=== PATIENT | male | born 1935 | race Caucasian/White ===

== ENCOUNTER 2017-08-05 20:01 | Inpatient (IN) | payer MEDICARE, MEDICAID ==
[2017-08-05 21:14] LABS: % BASOPHILS 0.1 % (0.0-2.0); % EOSINOPHILS 0.1 % (0.0-5.0); MONOCYTE ABSOLUTE 0.4 Th/cmm (0.3-1.0); RED BLOOD COUNT 4.97 Mil/cmm (3.80-5.80)
[2017-08-05] MEDS ORDERED: Sodium Chloride 0.9% 1,000 ML IV ONE (21:16)
[2017-08-05 21:17] LABS: % LYMPHOCYTES 9.9 % (20.0-50.0); % MONOCYTES 3.1 % (2.0-10.0); % NEUTROPHILS 86.8 % (40.0-80.0); HEMATOCRIT 45.7 % (41.0-60); HEMOGLOBIN 15.2 gm/dL (12-16); LYMPHOCYTE ABSOLUTE 1.2 Th/cmm (1.5-3.0); MEAN CELL VOLUME 91.8 fl (80-99); MEAN CORPUSCULAR HEMOGLOBIN 30.5 pg (27.0-31.0); MEAN CORPUSCULAR HGB CONC 33.2 pg (28.0-36.0); MEAN PLATELET VOLUME 8.4 fl; PLATELET COUNT 358 Th/cmm (150-400); RED CELL DISTRIBUTION WIDTH 13.6 % (11.5-20.0)
[2017-08-05 21:21] LABS: WHITE BLOOD COUNT 12.6 Th/cmm (4.8-10.8)
[2017-08-05 21:27] LABS: ALB/GLOB RATIO 1.1 (1.0-1.8); ALBUMIN 3.9 gm/dL (4.2-5.5); ALKALINE PHOSPHATASE 54 U/L (34-104); ANION GAP 11.5 (7.0-16.0); BILIRUBIN,TOTAL 0.6 mg/dL (0.3-1.0); BUN - UREA NITROGEN 28 mg/dL (7-25); CALCIUM SERUM 9.8 mg/dL (8.6-10.3); CARBON DIOXIDE 27.3 mEq/L (21.0-31.0); CHLORIDE 101 mEq/L (98-107); CREATININE - SERUM 0.8 mg/dL (0.7-1.3); GLUCOSE 142 mg/dL (70-105); POTASSIUM SERUM 3.8 mEq/L (3.5-5.1); SGOT 19 U/L (13-39); SGPT/ALT 11 U/L (7-52); SODIUM SERUM 136 mEq/L (136-145); TOTAL PROTEIN,SERUM 7.6 gm/dL (6.0-8.3)
[2017-08-05 21:28] LABS: AMYLASE SERUM 32 U/L (29-103); LIPASE 6 U/L (11-82)
[2017-08-05] MEDS ORDERED: cefTRIAXone 1 GM in Sodium Chloride 0.9% 50 ML IV ONE (21:40)
--- NOTE | 2017-08-05 21:50 | ED Physician Chart ---
ED Chief Complaint/HPI - Patient Information Date Seen:: 08/05/17 Allergies:: Allergies Allergy/AdvReac Type Severity Reaction Status Date / Time tetracycline Allergy Verified 08/05/17 21:04 Vitals:: Vital Signs - 8 hr 08/05/17 20:05 Temp 98.1 F HR 88 RR 19 BP 127/69 O2 Sat % 96 Family Medical History - Family Member Father History Unknown: Yes Ethnicity: Non- ED Labs/Radiology/EKG Results - Lab Results Results: Laboratory Tests 08/05/17 08/05/17 08/05/17 21:06 21:06 21:06 WBC 12.6 H RBC 4.97 Hgb 15.2 Hct 45.7 MCV 91.8 MCH 30.5 MCHC Differential 33.2 RDW 13.6 Plt Count 358 MPV 8.4 Neutrophils % 86.8 H Lymphocytes % 9.9 L Monocytes % 3.1 Eosinophils % 0.1 Basophils % 0.1 Sodium 136 Potassium 3.8 Chloride 101 Carbon Dioxide 27.3 Anion Gap 11.5 BUN 28 H Creatinine 0.8 Est GFR ( Amer) TNP Est GFR (Non-Af Amer) TNP BUN/Creatinine Ratio 35.0 Glucose 142 H Whole Bld Lactic Acid Calcium 9.8 Total Bilirubin 0.6 AST 19 ALT 11 Alkaline Phosphatase 54 Total Protein 7.6 Albumin 3.9 L Globulin 3.7 Albumin/Globulin Ratio 1.1 Amylase 32 Lipase 6 L 08/05/17 21:06 WBC RBC Hgb Hct MCV MCH MCHC Differential RDW Plt Count MPV Neutrophils % Lymphocytes % Monocytes % Eosinophils % Basophils % Sodium Potassium Chloride Carbon Dioxide Anion Gap BUN Creatinine Est GFR ( Amer) Est GFR (Non-Af Amer) BUN/Creatinine Ratio Glucose Whole Bld Lactic Acid 1.17 Calcium Total Bilirubin AST ALT Alkaline Phosphatase Total Protein Albumin Globulin Albumin/Globulin Ratio Amylase Lipase ED Septic Shock - <6hrs of presentation: Vital Signs: Vital Signs - 8 hr 08/05/17 20:05 Temp 98.1 F HR 88 RR 19 BP 127/69 O2 Sat % 96
[2017-08-06 01:25] VITALS: BP 113/67
[2017-08-06] MEDS ORDERED: Mag Sulfate 2gm/50mL Premix 2 GM/50 ML BAG IV PRN (06:50)
[2017-08-06] MEDS ORDERED: Potassium Chloride 20 mEq ER Tab PO PRN (06:50)
[2017-08-06] MEDS ORDERED: Morphine Sulfate 2 mg/mL 1mL Syr IVP PRN (06:50)
--- NOTE | 2017-08-06 07:32 | History & Physical ---
ADMIT DATE: 08/06/2017 CHIEF COMPLAINT: Worsening confusion, labile mood, decreased appetite, and overall decline. HISTORY OF PRESENT ILLNESS/CAUSE OF ADMISSION: The patient is an 82-year-old male who is a patient of mine at long term facility. He had been experiencing worsening confusion, lethargy, and overall decline. He has also had decreased appetite and some nausea as well. He was sent to the hospital where he was found to have a leukocytosis. PAST MEDICAL HISTORY: Significant for glaucoma, muscle spasms, BPH, and Alzheimer dementia. PAST SURGICAL HISTORY: No recent major surgeries. FAMILY HISTORY: Noncontributory. ALLERGIES: He is allergic to tetracycline. MEDICATIONS: All home medications reviewed and reconciled. REVIEW OF SYSTEMS: GENERAL: Positive recent fatigue, worsening confusion, and overall decline and decreased appetite. HEENT: No recent head trauma, change in vision, taste, hearing, or smell. Oral: No recent pain or discharge. NECK: No recent tracheal deviation. ABDOMEN: No recent pain or distension. SKIN: No recent rashes. PSYCHIATRIC: He has been experiencing worsening confusion and labile mood and erratic behavior. EXTREMITIES: No recent edema. MUSCULOSKELETAL: Positive history of muscle spasms. EYES: He has history of glaucoma. GENITOURINARY: He has history of BPH. RESPIRATORY: No history of COPD or asthma. PHYSICAL EXAMINATION: VITAL SIGNS: Temperature 98 degrees, heart rate is 75, respirations 18, blood pressure 112/63. Currently, no pain. GENERAL: No acute distress, awake, but confused. He is not alert. HEENT: No acute issues. NECK: Trachea is midline. CARDIOVASCULAR: Regular rate and rhythm. ABDOMEN: Nontender, nondistended. SKIN: No rashes. PSYCHIATRIC: He has labile mood. EXTREMITIES: 1+ edema in lower extremities. RESPIRATORY: Decreased breath sounds bilaterally. CARDIOVASCULAR: Regular rate and rhythm. GENITOURINARY: No hematuria is noted. LABORATORY DATA: Some of the labs are pending. White count is 12.6, hemoglobin is 15.2, and platelet count is 358,000. Sodium is 136, potassium 3.8, chloride 101, bicarbonate 27.3, BUN 28, creatinine 0.8, glucose 142. Lipase is 6. TSH is 0.28. ASSESSMENT AND PLAN: 1. Metabolic encephalopathy. 2. Dementia, Alzheimer's type with exacerbation. 3. Muscle spasms. 4. Glaucoma. 5. Leukocytosis. 6. Benign prostatic hypertrophy. 7. Mild malnutrition. 8. Prerenal azotemia. PLAN: The patient is on IV hydration. Follow up on UA, chest x-ray, and blood cultures. long term medications have been continued. Continue to monitor closely. Follow up on chest x-ray and the rest of the electrolytes. Prognosis is guarded. The patient can benefit from a psych evaluation. [facility]# [id number]
--- NOTE | 2017-08-06 08:01 | Diagnostic Imaging Report ---
Exam: Portable summation of chest. HISTORY: Shortness of breath. Findings: Portable upright examination of the chest at 2112 hours reviewed no prior studies available comparison. The study demonstrates COPD changes. There is evidence for scarring versus a right apical peribronchial thickening which might represent early infiltrate. The costophrenic angles are clear. Bony thorax intact. The aortic arch is calcified. IMPRESSION: 1. COPD changes. 2. Peribronchial thickening right apex might represent fibrosis versus early infiltrate follow-up examination is recommended.
[2017-08-06] MEDS ORDERED: Non-Formulary Item 1 EA (Amino Acids/Protein Hydrolys [Pro-Stat Awc Liquid] 30 ML) PO SCH (09:00)
--- NOTE | 2017-08-06 11:00 | Diagnostic Imaging Report ---
CT abdomen and pelvis without intravenous contrast Indication: Pain, vomiting Comparison: None, Technique: Axial images were obtained from the lung bases to the bilateral proximal femurs without IV contrast. Coronal reconstructions were made. total DLP: 534, CTDI9.9 FINDINGS: Emphysematous changes of the lung bases are seen. Hypoventilatory and atelectatic lung changes are seen with focal left basal infiltrates. Assessment of the solid organs is limited due to lack of IV contrast. Partially visualized pacemaker wires are noted. A 1.5 cm cyst is seen within the left dome of the liver. An additional 1 cm cyst is seen within the right dome of the liver. Gallstones are noted. No focal hepatic lesions. Limited assessment of pancreas demonstrate no obvious focal lesions. No focal adrenal lesions. Small bilateral renal calculi are seen the largest on left side measuring 4 mm. No hydronephrosis. Mild mild bilateral perinephric inflammatory changes are noted. The stomach is markedly distended. Multiple gas and fluid loops of small and large bowel are noted. No evidence of free air or free fluid. Heavy atherosclerotic vascular disease is noted. Degenerative changes spine are noted. Postsurgical changes of left femur are noted. IMPRESSION: Distended stomach and multiple gaseous and fluid distended loops of small and large bowel. Findings are nonspecific and may be due to inflammatory process/enteritis. A low-grade obstructive process is considered less likely. Please correlate with clinical findings Nonobstructive bilateral renal stones. Nonspecific bilateral perinephric inflammatory changes Gallstones. Appendix was not visualized. Focal left basal pulmonary infiltrates. Evidence of left femoral fracture fixation. Heavy atherosclerotic vascular disease.
[2017-08-06] MEDS: D5-0.9%NS 1,000 ML IV SCH (15:57)
[2017-08-06 18:01] LABS: URINE MICROSCOPIC INDICATED? YES; URINE SOURCE RANDOM
[2017-08-06 18:05] LABS: URINE BILIRUBIN NEGATIVE (NEGATIVE); URINE BLOOD TRACE (NEGATIVE); URINE GLUCOSE (UA) NEGATIVE (NEGATIVE); URINE KETONE NEGATIVE (NEGATIVE); URINE LEUKOCYTE ESTERASE SMALL (NEGATIVE); URINE NITRATE POSITIVE (NEGATIVE); URINE PROTEIN TRACE mg/dL (NEGATIVE); URINE UROBILINOGEN 0.2 E.U./dL (0.2 - 1.0)
[2017-08-06 18:48] LABS: URINE CLARITY CLEAR (CLEAR); URINE COLOR YELLOW
[2017-08-06 18:52] LABS: URINE BACTERIA FEW /hpf (NONE SEEN); URINE EPITHELIAL CELLS NONE SEEN /lpf (FEW)
[2017-08-07 05:37] LABS: MANUAL DIFF REQUIRED? YES; MEAN CELL VOLUME 91.4 fl (80-99); MEAN CORPUSCULAR HEMOGLOBIN 30.6 pg (27.0-31.0); MEAN CORPUSCULAR HGB CONC 33.5 pg (28.0-36.0); MEAN PLATELET VOLUME 8.6 fl; RED BLOOD COUNT 3.92 Mil/cmm (3.80-5.80); RED CELL DISTRIBUTION WIDTH 13.9 % (11.5-20.0)
[2017-08-07 05:44] LABS: HEMATOCRIT 35.9 % (41.0-60); PLATELET COUNT 268 Th/cmm (150-400); WHITE BLOOD COUNT 12.9 Th/cmm (4.8-10.8)
[2017-08-07 06:00] LABS: ANION GAP 6.5 (7.0-16.0); BUN - UREA NITROGEN 18 mg/dL (7-25); CALCIUM SERUM 8.3 mg/dL (8.6-10.3); CHLORIDE 104 mEq/L (98-107); CREATININE - SERUM 0.6 mg/dL (0.7-1.3); GLUCOSE 105 mg/dL (70-105); POTASSIUM SERUM 3.5 mEq/L (3.5-5.1); SODIUM SERUM 135 mEq/L (136-145)
[2017-08-07 06:36] LABS: BAND NEUTROPHILE 4 % (0-10); EOSINOPHIL 1 % (0-5); LYMPHOCYTE 6 % (20-50); MONOCYTE 4 % (2-10); NEUTROPHILS 85 % (40-80); PLATELET ESTIMATE ADEQUATE (NORMAL); TOTAL CELLS COUNTED 100
--- NOTE | 2017-08-07 11:00 | General Progress Note ---
Subjective - Review of Systems Service Date: 08/07/17 Subjective: Pt seen and eval. Ct abd and pelvis done as pt was experiencing intractable nausea and vomiting (part of reason why he was sent to the hospital). He's found to have UTI as well. Now on [place]. GI has been consulted. No fevers or chills. No pain. No falls. Objective - Results Result Diagrams: 08/07/17 05:17 08/07/17 05:17 Recent Labs: Laboratory Last Values WBC 12.9 Th/cmm (4.8-10.8) H 08/07/17 05:17 RBC 3.92 Mil/cmm (3.80-5.80) 08/07/17 05:17 Hgb 12.0 gm/dL (12-16) D 08/07/17 05:17 Hct 35.9 % (41.0-60) L D 08/07/17 05:17 MCV 91.4 fl (80-99) 08/07/17 05:17 MCH 30.6 pg (27.0-31.0) 08/07/17 05:17 MCHC Differential 33.5 pg (28.0-36.0) 08/07/17 05:17 RDW 13.9 % (11.5-20.0) 08/07/17 05:17 Plt Count 268 Th/cmm (150-400) D 08/07/17 05:17 MPV 8.6 fl 08/07/17 05:17 Neutrophils % 86.8 % (40.0-80.0) H 08/05/17 21:06 Band Neutrophils % 4 % (0-10) 08/07/17 05:17 Lymphocytes % 9.9 % (20.0-50.0) L 08/05/17 21:06 Monocytes % 3.1 % (2.0-10.0) 08/05/17 21:06 Eosinophils % 0.1 % (0.0-5.0) 08/05/17 21:06 Basophils % 0.1 % (0.0-2.0) 08/05/17 21:06 Neutrophils (Manual) 85 % (40-80) H 08/07/17 05:17 Lymphocytes 6 % (20-50) L 08/07/17 05:17 Monocytes 4 % (2-10) 08/07/17 05:17 Eosinophils 1 % (0-5) 08/07/17 05:17 Platelet Estimate ADEQUATE (NORMAL) 08/07/17 05:17 Sodium 135 mEq/L (136-145) L 08/07/17 05:17 Potassium 3.5 mEq/L (3.5-5.1) 08/07/17 05:17 Chloride 104 mEq/L (98-107) 08/07/17 05:17 Carbon Dioxide 28.0 mEq/L (21.0-31.0) 08/07/17 05:17 Anion Gap 6.5 (7.0-16.0) L 08/07/17 05:17 BUN 18 mg/dL (7-25) 08/07/17 05:17 Creatinine 0.6 mg/dL (0.7-1.3) L 08/07/17 05:17 Est GFR ( Amer) TNP 08/07/17 05:17 Est GFR (Non-Af Amer) TNP 08/07/17 05:17 BUN/Creatinine Ratio 30.0 08/07/17 05:17 Glucose 105 mg/dL (70-105) 08/07/17 05:17 Hemoglobin A1c % 7.0 % (4.0-6.0) H 08/06/17 07:30 Whole Bld Lactic Acid 1.17 mmol/L (0.60-1.99) 08/05/17 21:06 Calcium 8.3 mg/dL (8.6-10.3) L 08/07/17 05:17 Magnesium 2.2 mg/dL (1.9-2.7) 08/06/17 07:30 Total Bilirubin 0.6 mg/dL (0.3-1.0) 08/05/17 21:06 AST 19 U/L (13-39) 08/05/17 21:06 ALT 11 U/L (7-52) 08/05/17 21:06 Alkaline Phosphatase 54 U/L (34-104) 08/05/17 21:06 Total Protein 7.6 gm/dL (6.0-8.3) 08/05/17 21:06 Albumin 3.9 gm/dL (4.2-5.5) L 08/05/17 21:06 Globulin 3.7 gm/dL 08/05/17 21:06 Albumin/Globulin Ratio 1.1 (1.0-1.8) 08/05/17 21:06 Amylase 32 U/L (29-103) 08/05/17 21:06 Lipase 6 U/L (11-82) L 08/05/17 21:06 TSH 0.28 uIU/ml (0.34-5.60) L 08/05/17 21:06 Urine Source RANDOM 08/06/17 17:45 Urine Color YELLOW 08/06/17 17:45 Urine Clarity CLEAR (CLEAR) 08/06/17 17:45 Urine pH 6.0 (4.6 - 8.0) 08/06/17 17:45 Ur Specific [place] >= 1.030 (1.005-1.030) 08/06/17 17:45 Urine Protein TRACE mg/dL (NEGATIVE) 08/06/17 17:45 Urine Glucose (UA) NEGATIVE mg/dL (NEGATIVE) 08/06/17 17:45 Urine Ketones NEGATIVE mg/dL (NEGATIVE) 08/06/17 17:45 Urine Blood TRACE (NEGATIVE) 08/06/17 17:45 Urine Nitrate POSITIVE (NEGATIVE) H 08/06/17 17:45 Urine Bilirubin NEGATIVE (NEGATIVE) 08/06/17 17:45 Urine Urobilinogen 0.2 E.U./dL (0.2 - 1.0) 08/06/17 17:45 Ur Leukocyte Esterase SMALL (NEGATIVE) H 08/06/17 17:45 Urine RBC 5-10 /hpf (0-5) H 08/06/17 17:45 Urine WBC 6-10 /hpf (0-5) H 08/06/17 17:45 Ur Epithelial Cells NONE SEEN /lpf (FEW) 08/06/17 17:45 Urine Bacteria FEW /hpf (NONE SEEN) 08/06/17 17:45 - Physical Exam Vitals and I&O: Vital Signs Temp 98.1 F 08/07/17 07:54 Pulse 59 08/07/17 08:07 Resp 18 08/07/17 08:07 BP 102/52 08/07/17 07:54 Pulse Ox 95 08/07/17 08:07 Intake & Output 08/06/17 08/07/17 08/07/17 18:59 06:59 18:59 Intake Total 1100 Output Total 100 Balance 1000 Weight (lbs) 64.546 kg Intake: Oral 1100 Output: Urine 100 Other: # Voids 2 # Bowel Movements 0 Active Medications: Current Medications Acetaminophen (Tylenol) 650 mg PO Q6H PRN PRN Reason: HEADACHE/TEMP ABOVE 100F Stop: 10/05/17 06:49 Acetaminophen/Hydrocodone Bitart ([place] 5mg/325mg) 1 tab PO Q4H PRN PRN Reason: Pain (moderate) Stop: 10/05/17 06:47 Baclofen (Lioresal) 5 mg PO BID [facility] Stop: 10/05/17 08:59 Last Admin: 08/07/17 08:40 Dose: 5 mg Docusate Sodium (Colace) 100 mg PO BID PRN PRN Reason: Constipation Stop: 10/05/17 06:49 Last Admin: 08/06/17 11:22 Dose: 100 mg Finasteride (Proscar) 5 mg PO DAILY TREMAINE PRN Reason: Protocol Stop: 10/05/17 08:59 Last Admin: 08/07/17 08:39 Dose: 5 mg Dextrose/Sodium Chloride (D5-0.9%Ns) 1,000 mls @ 70 mls/hr IV .[id number] [facility] Stop: 10/04/17 21:59 Last Admin: 08/06/17 15:57 Dose: 70 mls/hr Magnesium Sulfate (Magnesium Sulfate Premix) 2 gm in 50 mls @ 25 mls/hr IV DAILY PRN PRN Reason: Magnesium level less than 1.6 Stop: 10/05/17 06:49 Ceftriaxone Sodium 1 gm/ (Sodium Chloride) 50 mls @ 100 mls/hr IV Q24HR [facility] Stop: 10/06/17 10:59 Lorazepam (Ativan) 1 mg IVP Q4HR PRN; Protocol PRN Reason: Anxiety Stop: 10/05/17 06:49 Morphine Sulfate (Morphine) 2 mg IVP Q4H PRN PRN Reason: Severe pain Stop: 10/05/17 06:49 Last Admin: 08/06/17 19:56 Dose: 2 mg Ondansetron HCl (Zofran) 4 mg IVP Q6H PRN PRN Reason: Nausea / Vomiting Stop: 10/05/17 06:49 Last Admin: 08/06/17 16:11 Dose: 4 mg Potassium Chloride (Klor-Con) 40 meq PO DAILY PRN PRN Reason: k level less than 3.5 Stop: 10/05/17 06:49 Rivaroxaban (Xarelto) 20 mg PO HS TREMAINE Stop: 10/05/17 20:59 Last Admin: 08/06/17 20:26 Dose: 20 mg Simvastatin (Zocor) 20 mg PO HS TREMAINE PRN Reason: Protocol Stop: 10/05/17 20:59 Last Admin: 08/06/17 20:26 Dose: 20 mg Tamsulosin HCl (Flomax) 0.4 mg PO QPM [facility] Stop: 10/05/17 16:59 Last Admin: 08/06/17 17:40 Dose: 0.4 mg Timolol Maleate (Timoptic 0.5% Ophth Soln) 1 drop EACH EYE BID [facility] Stop: 10/05/17 08:59 Last Admin: 08/07/17 08:41 Dose: 1 drop Zolpidem Tartrate (Ambien) 10 mg PO HS PRN PRN Reason: Insomnia Stop: 10/05/17 06:49 General: No acute distress HEENT: Atraumatic, PERRLA Neck: Supple, JVD Cardiovascular: Regular rate, Normal S1 Lungs: Clear to auscultation Abdomen: Bowel sounds Assessment/Plan - Assessment Assessment: Sepsis secondary to UTI and enteritis. Gastroenteritis ME MARY JO with exac Muscle spasms Glaucoma BPH Mild malnut Pre renal azotemia - Plan Plan: Pt has been started on IV Rocephin for UTI. Ct abd and pelvis done. GI consulted due to abnormalities on report. FU on cbc and chem 7. on IV fluids as well. Nutritional Asmnt/Malnutr-PDOC - Dietary Evaluation Malnutrition Findings (Please click <Entered> for more info): Nutritional Asmnt/Malnutrition Start: 08/06/17 15: 59 Text: Status: Complete Freq: Document 08/06/17 16:04 [email or web address] (Rec: 08/06/17 16:24 [email or web address] [email or web address]) Nutritional Asmnt/Malnutrition Patient General Information Nutritional Screening High Risk Diagnosis gastritis, leukocytosis, dehydration (reason for visit) Pertinent Medical Hx/Surgical Hx glaucoma, muscle spasms, BPH, alzheimer dementia Subjective Information Pt seen sleeping at time of visit. Spoke with RN, pt had CT can this morning, NPO for breakfast. RN stated pt only had apple juice and water for lunch d/t N/V, prefer to have clear liquids for dinner tonight. Current Diet Order/ Nutrition Support regular Pertinent Medications D5-0.9%ns, colace, kcl Pertinent Labs 08/05 Na 136, K 3.8, Cl 101, BUN 28, Cr 0.8, Glucose 142, A1c 7.0, Ca 9.8, alb 3.9 Nutritional Hx/Data Height 1.85 m Height (Calculated Centimeters) 185.4 Current Weight (lbs) 62.142 kg Weight (Calculated Kilograms) 62.1 Weight (Calculated Grams) 48421.2 [place] Body Weight 184 % [place] Body Weight 74 Body Mass Index (BMI) 18.1 Weight Status Underweight GI Symptoms GI Symptoms Nausea Vomitting Last BM no record Difficult in: None Skin Integrity/Comment: intact Current %PO Negligible < 25% Estimated Nutritional Goals Calories/Kcals/Kg 30-35 considering underweight Kcals Calculated 1860-2170kcal Protein g/k-1.2 Protein Calculated 62-74 Fluid: ml [id number] Nutritional Problem 1. Problem Problem inadequate food intake Etiology poor appetite, N/V Signs/Symptoms: PO intake < 25% Intervention/Recommendation Comments 1. Recommend clear liquid diet d/t pt not able to take down solid food. Notified dietetics teacher to send broth, apple juice with dinner tray. 2. Monitor PO intake, GI synptomes, wt, labs and skin integrity 3. F/U as high risk in 2-3 days, 08/08-08/09 Expected Outcomes/Goals Expected Outcomes/Goals 1. PO intake to meet at least 75% of nutritional needs, PO intake to improve, no N/V. 2. Wt stability, skin to remain intact, labs to approach WNL.
[2017-08-07] MEDS: cefTRIAXone 1 GM in Sodium Chloride 0.9% 50 ML IV SCH (11:55)
[2017-08-07] MEDS ORDERED: Sodium Chloride 0.9% 500 ML IV ONE (17:46)
[2017-08-07] MEDS: D5-0.9%NS 1,000 ML IV SCH (19:24)
[2017-08-08] MEDS: Hydrocodone/APAP 5mg/325mg Tab PO PRN ×2 (00:41→12:20)
[2017-08-08 06:50] LABS: % BASOPHILS 1.4 % (0.0-2.0); % EOSINOPHILS 2.8 % (0.0-5.0); % LYMPHOCYTES 16.8 % (20.0-50.0); % MONOCYTES 8.4 % (2.0-10.0); % NEUTROPHILS 70.6 % (40.0-80.0); BASOPHILE ABSOLUTE 0.1 Th/cumm (0-0.2); EOSINOPHILE ABSOLUTE 0.2 Th/cmm (0.1-0.4); HEMATOCRIT 39.1 % (41.0-60); HEMOGLOBIN 12.8 gm/dL (12-16); LYMPHOCYTE ABSOLUTE 1.2 Th/cmm (1.5-3.0); MEAN CELL VOLUME 92.4 fl (80-99); MEAN CORPUSCULAR HEMOGLOBIN 30.3 pg (27.0-31.0); MEAN CORPUSCULAR HGB CONC 32.8 pg (28.0-36.0); MEAN PLATELET VOLUME 9.1 fl; MONOCYTE ABSOLUTE 0.6 Th/cmm (0.3-1.0); NEUTROPHILE ABSOLUTE 4.9 Th/cmm (1.8-8.0); PLATELET COUNT 255 Th/cmm (150-400); RED BLOOD COUNT 4.23 Mil/cmm (3.80-5.80); RED CELL DISTRIBUTION WIDTH 13.8 % (11.5-20.0)
[2017-08-08 07:02] LABS: BUN - UREA NITROGEN 14 mg/dL (7-25); CALCIUM SERUM 7.9 mg/dL (8.6-10.3); CREATININE - SERUM 0.5 mg/dL (0.7-1.3); GLUCOSE 100 mg/dL (70-105)
[2017-08-08 07:33] LABS: ANION GAP 7.1 (7.0-16.0); CARBON DIOXIDE 23.4 mEq/L (21.0-31.0); CHLORIDE 108 mEq/L (98-107); POTASSIUM SERUM 3.5 mEq/L (3.5-5.1); SODIUM SERUM 135 mEq/L (136-145)
[2017-08-08] MEDS: D5-0.9%NS 1,000 ML IV SCH (09:42)
[2017-08-08] MEDS ORDERED: Probiotic Screen MC PRN (10:45)
[2017-08-08] MEDS ORDERED: POLYETHYLENE GLYCOL 3350 17 GM PACK PO SCH (11:00)
[2017-08-08] MEDS: cefTRIAXone 1 GM in Sodium Chloride 0.9% 50 ML IV SCH (11:31)
--- NOTE | 2017-08-09 00:08 | Consultation ---
DATE OF CONSULTATION: 08/08/2017 REASON FOR CONSULTATION: Weight loss, failure to thrive, nausea. HISTORY OF PRESENT ILLNESS: The patient is an 82-year-old male who has past medical history significant for Alzheimer's dementia, glaucoma, benign prostatic hypertrophy who was admitted to the hospital from a group home facility with decreased appetite, worsening confusion. As per report, the patient has not been eating his meals and is consuming only about 10% of anything he has been given. There is some report of weight loss, although we do not know how much weight he has actually lost. The patient has not had a swallow evaluation, but by report, he is able to eat food without issue. The patient denies any current nausea or vomiting, although there is some report that he may have some nausea while trying to eat. Overall, the patient appears to have declined over the past month or two and is weaker than his usual state. PAST MEDICAL HISTORY: Alzheimer dementia, glaucoma, benign prostatic hypertrophy. PAST SURGICAL HISTORY: There are no documented abdominal surgeries. FAMILY HISTORY: Noncontributory. SOCIAL HISTORY: There is no documented history of alcoholism or drug abuse. ALLERGIES: There is reported allergy to tetracycline. CURRENT MEDICATIONS: Tylenol, [place] as needed, baclofen, ceftriaxone, Colace, finasteride, lorazepam, morphine as needed, Zofran as needed, Xarelto, Zocor, Ambien as needed. REVIEW OF SYSTEMS: Not possible given the patient's reduced mental status. PHYSICAL EXAMINATION: VITAL SIGNS: Blood pressure is 90/42, pulse of 57, temperature 97.1, oxygen is 95%. GENERAL: The patient is lying on his side at 30 degrees. He is alert and oriented x 1, no apparent distress. HEENT: Normocephalic and atraumatic-appearing head. No scleral icterus. Pupils are equal and reactive to light. Extraocular muscles are intact. Moist mucous membranes. NECK: Supple, no JVD, no obvious thyromegaly. LUNGS: Clear to auscultation. CARDIOVASCULAR: S1 and S2 present. Regular rate and rhythm. ABDOMEN: Soft, thin, nontender to palpation. No guarding, no rebound. No distention. EXTREMITIES: Frail. No edema. Pulses are present. SKIN: No obvious jaundice or other rashes or clubbing. LABORATORY DATA: White blood cell count is 7, hemoglobin is 12.8, platelet count is 255. Sodium 135, BUN is 14, creatinine 0.5. AST 19, ALT 11, total bilirubin 0.6. Lipase is 6. IMAGING STUDIES: An abdomen and pelvis CT was performed and shows emphysematous changes at the lung bases. Limited evaluation of the pancreas did not demonstrate obvious lesion. The stomach is markedly distended. Multiple gas and fluid loops of small and large bowel are noted. No evidence of free air or free fluid. Degenerative changes of the spine. IMPRESSION: This is an 82-year-old man with Alzheimer dementia who is on Xarelto, who now is admitted to the hospital with worsening confusion, weight loss and a report of intractable nausea and vomiting. 1. Nausea and vomiting. 2. Alzheimer dementia. 3. Anticoagulation. 4. Ileus. DISCUSSION: The patient's CT scan does show distended stomach with some gas-filled loops of small bowel as well. This may be consistent with an ileus as there is no high-grade obstruction identified. Additionally, there is report that the patient is not eating his meals very well, which is likely related to progression of his Alzheimer dementia. The patient was lucid enough to voice that he did not want a G-tube placed, although we are reaching out to the patient's and family to have their opinions on whether they ultimately would want a feeding tube placed if the patient is unable to take any p.o. nutrition. In terms of the findings of a distended stomach and small bowel loops, we can treat for ileus with laxative enema as well as encouraging the patient to be moved around in his bed as much as possible. If his nausea and vomiting intensify, we can place an NG tube for decompression. The patient did have a leukocytosis on admission and this has been improving on ceftriaxone so unclear if there was an infectious component to the ileus as well. RECOMMENDATIONS: 1. We will start the patient on MiraLax twice a day and a tap water enema to help encourage his bowels to move. 2. Followup on calorie counts and how the patient is eating in the coming days and the family's opinion towards enteral nutrition options. 3. 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 4. Swallow evaluation. I will continue to follow the patient. Thank you for allowing me to participate in his care. Please call if any further questions. [facility]# [id number]
[2017-08-09] MEDS ORDERED: Lactobacillus Rhamnosus GG 15 Billion CFU CAP.SPRINK PO SCH (09:00)
[2017-08-09] MEDS ORDERED: POLYETHYLENE GLYCOL 3350 17 GM PACK PO SCH (09:00)
== END 2017-08-08 15:20 | disposition home or self-care (01) | DRG 871 ==
LOC: ER 20:01 → MSI 22:00
PROVIDERS: ADMIT General Practice; ATTEND General Practice
DX: A41.9 Sepsis, unspecified organism (principal); G93.41 Metabolic encephalopathy; K56.7 Ileus, unspecified; F02.81 Dementia in other diseases classified elsewhere, unspecified severity, with behavioral disturbance; G30.9 Alzheimer's disease, unspecified; E44.1 Mild protein-calorie malnutrition; N39.0 Urinary tract infection, site not specified; Z68.1 Body mass index [BMI] 19.9 or less, adult; H40.9 Unspecified glaucoma; N40.0 Benign prostatic hyperplasia without lower urinary tract symptoms; R79.89 Other specified abnormal findings of blood chemistry; K52.9 Noninfective gastroenteritis and colitis, unspecified; M62.838 Other muscle spasm
CPT/HCPCS: 36415-UA; 71010-TC; 80048-TC; 80053-TC; 81001-TC; 82150-TC; 83036-90; 83605; 83690-TC; 83735-TC; 84443-TC; 85007-TC; 85025-TC; 85027-TC; 87086-90; 93005; 94760; 96375; J0696; J2270; J2405; J7042; X3401; Z7610